=== PATIENT | male | born 1985 | race Caucasian/White ===

== ENCOUNTER → 2021-06-03 | Outpatient (CLI) | payer BC ==
--- NOTE | 2021-06-03 15:47 | RAD ---
EXAM: Left elbow, 3 views. HISTORY: Pain. COMPARISON: 08/27/2019 FINDINGS: 3 views of the left elbow are obtained. There is internal fixation of healed distal humeral and proximal ulnar fractures with fixation plates and screws. There is chronic deformity of the radi al head with superimposed bulky osteophyte formation. There aren't left elbow joint loose bodies. The re is no evidence of instrumentation loosening. There is no evidence of a joint effusion. IMPRESSION: 1. Internal fixation of healed distal humeral and proximal ulnar fractures. There is no evidence of i nstrumentation loosening. 2. 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 Electronically signed by: Danni Watkins MD (06/03/2021 3:45 PM) [id number]
== END ==
LOC: RAD 15:23
PROVIDERS: ATTEND Orthopaedic Surgery
DX: M21.822 Other specified acquired deformities of left upper arm (principal); M25.522 Pain in left elbow; Z96.622 Presence of left artificial elbow joint
CPT/HCPCS: 73080